=== PATIENT | male | born 2005 | race Caucasian/White ===

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

== ENCOUNTER 2024-06-23 21:30 | Emergency (ER) | payer OTHER ==
[~2024-06-23] VITALS: Ht 182.9 cm; Wt 72.5 kg
[2024-06-23 21:59] LABS: HEMATOCRIT 42.5 % (42.0-52.0); HEMOGLOBIN 14.8 g/dl (13.5-17.5); MEAN CORPUSCULAR HEMOGLOBIN 28.7 pg (27.0-33.0); MEAN CORPUSCULAR HGB CONC 34.8 g/dl (32.0-36.5); MEAN CORPUSCULAR VOLUME 82.4 fl (80.0-96.0); PLATELET COUNT, AUTOMATED 419 10^3/uL (150-450); RED BLOOD COUNT 5.16 10^6/uL (4.30-6.10); WHITE BLOOD COUNT 6.9 10^3/uL (4.0-10.0)
[2024-06-23 22:26] LABS: SALICYLATE LEVEL < 3.0 MG/DL (<30)
[2024-06-23 22:27] LABS: ALBUMIN 4.4 G/DL (3.2-5.2); ALKALINE PHOSPHATASE 92 U/L (46-116); ALT/SGPT 17 U/L (7.0-40); AST/SGOT 11 U/L (<34); BILIRUBIN,DIRECT < 0.1 MG/DL (<0.4); BILIRUBIN,TOTAL 0.2 MG/DL (0.3-1.2); BLOOD UREA NITROGEN 8 MG/DL (9-23); CALCIUM LEVEL 9.2 MG/DL (8.5-10.1); CARBON DIOXIDE LEVEL 22 MMOL/L (20-31); CHLORIDE LEVEL 107 MMOL/L (98-107); GLUCOSE, FASTING 144 MG/DL (60-100); POTASSIUM SERUM 3.8 MMOL/L (3.5-5.1); SODIUM LEVEL 141 MMOL/L (136-145)
[2024-06-23 22:29] LABS: THYROID STIMULATING HORMONE 2.797 uIU/ML (0.48-4.17)
[2024-06-23 22:30] LABS: AMPHETAMINES LEVEL URINE NEGATIVE (NEGATIVE); BARBITURATES URINE NEGATIVE (NEGATIVE); BENZODIAZEPINES URINE NEGATIVE (NEGATIVE); CANNABINOIDS URINE NEGATIVE (NEGATIVE); COCAINE METABOLITE URINE NEGATIVE (NEGATIVE); METHADONE URINE NEGATIVE (NEGATIVE); OPIATES URINE NEGATIVE (NEGATIVE); PHENCYCLIDINE URINE NEGATIVE (NEGATIVE)
[2024-06-23 22:37] LABS: ETHYL ALCOHOL (ETHANOL) 0.287 % (0.000-0.010)
[2024-06-24 08:59] VITALS: BP 136/84; TEMP 98; O2SAT 98
== END 2024-06-24 09:14 | disposition home or self-care (01) ==
LOC: M ED 21:30
DX: F10.129 Alcohol abuse with intoxication, unspecified (principal); F90.9 Attention-deficit hyperactivity disorder, unspecified type; F84.0 Autistic disorder

== ENCOUNTER 2025-06-14 04:49 | Emergency (ER) | payer OTHER ==
[~2025-06-14] VITALS: Ht 182.9 cm; Wt 63.6 kg
[2025-06-14 04:56] VITALS: BP 130/84; TEMP 97.5; O2SAT 99
[2025-06-14 05:43] LABS: BASO # 0.0 10^3/uL (0.0-0.2); BASO % 0.8 % (0.0-1.0); EOS # 0.2 10^3/uL (0.0-0.5); EOS % 3.6 % (0.0-3.0); LYMPH # 1.8 10^3/uL (1.5-5.0); LYMPH % 33.3 % (24.0-44.0); MONO # 0.3 10^3/uL (0.0-0.8); MONO % 6.2 % (2.0-8.0); NEUTROPHILS # 3.0 10^3/uL (1.5-8.5); NEUTROPHILS % 55.9 % (36.0-66.0); PLATELET COUNT, AUTOMATED 397 10^3/uL (150-450)
[2025-06-14 06:23] LABS: ALT/SGPT 13 U/L (7.0-40); AST/SGOT 13 U/L (<34); CALCIUM LEVEL 8.5 MG/DL (8.5-10.1); CARBON DIOXIDE LEVEL 30 MMOL/L (20-31); CHLORIDE LEVEL 105 MMOL/L (98-107); CREATININE FOR GFR 0.74 MG/DL (0.70-1.30); GLOMERULAR FILTRATION RATE > 90.0 (>60); POTASSIUM SERUM 4.3 MMOL/L (3.5-5.1); SODIUM LEVEL 147 MMOL/L (136-145)
[2025-06-14 06:33] LABS: ETHYL ALCOHOL (ETHANOL) 0.319 % (0.000-0.010)
== END 2025-06-14 06:47 | disposition left against medical advice (07) ==
LOC: EDBD 04:49 → M ED 04:49
DX: K92.0 Hematemesis (principal); F10.10 Alcohol abuse, uncomplicated; Z53.9 Procedure and treatment not carried out, unspecified reason

== ENCOUNTER 2025-06-16 00:17 | Emergency (ER) | payer BC, OTHER ==
[~2025-06-16] VITALS: Ht 180.3 cm; Wt 63.2 kg
[2025-06-16] MEDS: PANTOPRAZOLE 40MG VIAL IV ONE (03:46)
[2025-06-16] MEDS: ONDANSETRON 4MG 2ML VIAL IV ONE (03:46)
[2025-06-16] MEDS: SODIUM CHLORIDE 0.9% 1000 ML IV STA (03:47)
[2025-06-16 03:49] LABS: BASO # 0.0 10^3/uL (0.0-0.2); BASO % 0.5 % (0.0-1.0); EOS # 0.3 10^3/uL (0.0-0.5); EOS % 4.0 % (0.0-3.0); LYMPH # 2.4 10^3/uL (1.5-5.0); LYMPH % 36.3 % (24.0-44.0); MONO # 0.4 10^3/uL (0.0-0.8); MONO % 6.6 % (2.0-8.0); NEUTROPHILS # 3.5 10^3/uL (1.5-8.5); NEUTROPHILS % 52.4 % (36.0-66.0); PLATELET COUNT, AUTOMATED 350 10^3/uL (150-450)
[2025-06-16 04:24] LABS: ETHYL ALCOHOL (ETHANOL) 0.074 % (0.000-0.010)
[2025-06-16 04:25] LABS: INR 0.95
[2025-06-16 04:28] LABS: ALT/SGPT 14 U/L (7.0-40); AST/SGOT 16 U/L (<34); CALCIUM LEVEL 9.3 MG/DL (8.5-10.1); CARBON DIOXIDE LEVEL 26 MMOL/L (20-31); CHLORIDE LEVEL 104 MMOL/L (98-107); CK-MB VALUE MASS < 1.0 NG/ML (<3.6); CPK CREATINE PHOSPHOKINASE 170 U/L (46-171); CREATININE FOR GFR 0.67 MG/DL (0.70-1.30); GLOMERULAR FILTRATION RATE > 90.0 (>60); MAGNESIUM LEVEL 2.0 MG/DL (1.8-2.4); POTASSIUM SERUM 4.1 MMOL/L (3.5-5.1); SODIUM LEVEL 145 MMOL/L (136-145)
[2025-06-16] MEDS ORDERED: ISOVUE-370 76% 100 ML VIAL As Ordered ONE (04:32)
[2025-06-16 05:09] LABS: KETONE, URINE AUTO RFX TRACE mg/dL (NEGATIVE); LEUKOCYTE ESTERASE UR AUTO RFX NEGATIVE (NEGATIVE); NITRITE, URINE AUTO RFX NEGATIVE (NEGATIVE); RBC, URINE AUTO RFX 0 /HPF (0-3); SQUAM EPITHELIAL CELL UR AURFX 0 /HPF (0-6); WBC, URINE AUTO RFX 2 /HPF (0-3)
[2025-06-16 05:39] LABS: AMPHETAMINES LEVEL URINE NEGATIVE (NEGATIVE); BARBITURATES URINE NEGATIVE (NEGATIVE); BENZODIAZEPINES URINE NEGATIVE (NEGATIVE); CANNABINOIDS URINE NEGATIVE (NEGATIVE); COCAINE METABOLITE URINE NEGATIVE (NEGATIVE); METHADONE URINE NEGATIVE (NEGATIVE); OPIATES URINE NEGATIVE (NEGATIVE); PHENCYCLIDINE URINE NEGATIVE (NEGATIVE)
[2025-06-16] MEDS ORDERED: PROT1TAB2 PO (06:32)
[2025-06-16 06:44] VITALS: BP 138/72; TEMP 97.4; O2SAT 97
== END 2025-06-16 06:53 | disposition home or self-care (01) ==
LOC: M ED 01:17
DX: K92.0 Hematemesis (principal); F10.20 Alcohol dependence, uncomplicated; I45.10 Unspecified right bundle-branch block; F32.A Depression, unspecified; Z79.899 Other long term (current) drug therapy
CPT/HCPCS: 74021; 74177; 80053; 80307; 81001; 82077; 82550; 82553; 83605; 83690; 83735; 84484; 85025; 85610; 85730; 86850; 86900; 86901; 93005; 96374; 96375; 99284; J2405; J2470; Q9967